=== PATIENT | male | born 1935 | race Caucasian/White ===

== ENCOUNTER → 2023-08-28 09:20 | Outpatient (REF) | payer MEDICARE, OTHER, SELFPAY ==
[2023-08-28 11:08] LABS: % Basophils 0.9 % (0-2); % Immature Granulocytes 0.1 % (0-0.5); % Lymphocytes 23.3 % (20.5-51.1); % Monocytes 6.8 % (1.7-9.3); % Neutrophils 65.9 % (42.2-75.2); Absolute Basophils 0.1 10^3/uL (0-0.2); Absolute Eosinophils 0.2 10^3/uL (0-0.7); Absolute Lymphocytes 1.6 10^3/uL (1.2-3.4); Absolute Monocytes 0.5 10^3/uL (0.1-0.6); Absolute Neutrophils 4.6 10^3/uL (1.4-6.5); Hematocrit 37.5 % (39.0-52.0); Hemoglobin 12.4 g/dL (13.0-18.0); Mean Corp Hgb Conc. 33.1 g/dL (33.0-37.0); Mean Corpuscular Hgb 32.7 pg (27.0-31.0); Mean Corpuscular Volume 98.9 fL (80.0-94.0); Mean Platelet Volume 9.4 fL (7.4-10.4); Nucleated Red Blood Cells % 0 % (-); Platelet Count 242 10^3/uL (130-400); Red Blood Cell Count 3.79 10^6/uL (4.70-6.10); Red Cell Dist. Width 12.6 % (11.5-14.5)
[2023-08-28 11:09] LABS: ALT (SGPT) 17 U/L (0-50); AST (SGOT) 27 U/L (17-59); Alkaline Phosphatase 62 U/L (38-126); Blood Urea Nitrogen 11 mg/dl (9-20); Calcium 9.7 mg/dl (8.4-10.2); Carbon Dioxide 28 mmol/L (22-30); Chloride 102 mmol/L (98-107); Glucose 98 mg/dl (70-99); HDL Cholesterol 73 mg/dl; LDL Cholesterol, Calculated 61 mg/dl; Potassium 4.6 mmol/L (3.5-5.1); Sodium 135 mmol/L (135-145); Total Bilirubin 0.7 mg/dl (0.2-1.3); Total Cholesterol 145 mg/dl (50-199); Total Protein 6.6 g/dl (6.3-8.2); Triglyceride 59 mg/dl (10-149); Very Low Density Lipoprotein 11 mg/dl (0-30); eGFR > 60.00
[2023-08-28 11:17] LABS: Vitamin D, 25-OH*** 48.2 ng/mL (30-80)
[2023-08-28 12:15] LABS: Glycohemoglobin (HgbA1c) 5.6 % (4.0-5.6)
== END ==
LOC: REG 09:20
PROVIDERS: ATTENDING PHYSICIAN Family Medicine
DX: I10 Essential (primary) hypertension (principal); E78.00 Pure hypercholesterolemia, unspecified; E55.9 Vitamin D deficiency, unspecified; R73.01 Impaired fasting glucose
CPT/HCPCS: 36415; 80053; 80061; 82306; 83036; 85025

== ENCOUNTER → 2023-10-20 06:24 | Day surgery (SDC) | payer MEDICARE, OTHER, SELFPAY | LOC: GI 06:24 | PROVIDERS: ATTENDING PHYSICIAN Specialist | DX: Z12.11 Encounter for screening for malignant neoplasm of colon (principal); K63.5 Polyp of colon; K57.30 Diverticulosis of large intestine without perforation or abscess without bleeding; Z86.010 Personal history of colon polyps; Z86.018 Personal history of other benign neoplasm; Z98.0 Intestinal bypass and anastomosis status | CPT/HCPCS: 45380; 88305 ==

== ENCOUNTER → 2023-11-02 14:31 | Outpatient (REF) | payer MEDICARE, OTHER, SELFPAY | LOC: REG 14:31 | PROVIDERS: ATTENDING PHYSICIAN Family Medicine | DX: R05.1 Acute cough (principal) | CPT/HCPCS: 71046 ==

== ENCOUNTER → 2023-11-24 07:13 | Outpatient (REF) | payer MEDICARE, OTHER, SELFPAY | LOC: RAD 07:13 | PROVIDERS: ATTENDING PHYSICIAN Family Medicine | DX: J30.2 Other seasonal allergic rhinitis (principal) | CPT/HCPCS: 71046 ==

== ENCOUNTER → 2023-12-10 09:12 | Outpatient (REF) | payer MEDICARE, OTHER, SELFPAY ==
[2023-12-10 09:55] VITALS: BP 163/65; BP_SYST 59
[2023-12-10 10:40] VITALS: BP 150/66
[2023-12-10 11:29] LABS: Body Fluid pH 7.46
[2023-12-10 11:45] LABS: Body Fluid Glucose 102 mg/dl; Body Fluid LDH 121 U/L; Body Fluid Protein 3.8 g/dl
[2023-12-10 13:04] LABS: Body Fluid Mononuclear 94.9 %; Body Fluid Polymorphonuclear 5.1 %; Body Fluid WBC 415 /CUMM
[2023-12-10 13:23] LABS: Body Fluid Second Tech AMA
== END ==
LOC: RADI 09:12
PROVIDERS: ATTENDING PHYSICIAN Internal Medicine Critical Care Medicine; FAMILY PHYSICIAN Family Medicine
DX: J90 Pleural effusion, not elsewhere classified (principal)
CPT/HCPCS: 88305; 32555; 71045; 82945; 83615; 83986; 84157; 87015; 87070; 87102; 87116; 87205; 87206; 88112; 89051

== ENCOUNTER → 2023-12-19 07:09 | Outpatient (REF) | payer MEDICARE, OTHER, SELFPAY | LOC: RAD 07:09 | PROVIDERS: ATTENDING PHYSICIAN Nurse Practitioner Family; FAMILY PHYSICIAN Family Medicine | DX: J90 Pleural effusion, not elsewhere classified (principal) | CPT/HCPCS: 71046 ==

== ENCOUNTER → 2023-12-25 11:01 | Outpatient (REF) | payer MEDICARE, OTHER, SELFPAY ==
[2023-12-25 11:20] VITALS: BP 142/92; BP_SYST 53
[2023-12-25 12:53] LABS: Body Fluid pH 7.47
[2023-12-25 13:05] LABS: Body Fluid Glucose 106 mg/dl; Body Fluid LDH 153 U/L; Body Fluid Protein 3.5 g/dl
[2023-12-25 13:06] LABS: Body Fluid Mononuclear 95.5 %; Body Fluid Polymorphonuclear 4.5 %; Body Fluid WBC 598 /CUMM
[2023-12-25 13:14] VITALS: BP 142/92
--- NOTE | 2023-12-25 13:16 | PTCARENOTE ---
[address] via stretcher for CT chest as per post thoracentesis order. Returned at 1245 and images reviewed by Dr Echevarria. Elieser for discharge.
[2023-12-25 13:19] LABS: Body Fluid Second Tech RLT
== END ==
LOC: RADI 11:01
PROVIDERS: ATTENDING PHYSICIAN Nurse Practitioner Family; FAMILY PHYSICIAN Family Medicine
DX: J90 Pleural effusion, not elsewhere classified (principal)
CPT/HCPCS: 88305; 32555; 71250; 82945; 83615; 83986; 84157; 87015; 87070; 87102; 87116; 87205; 87206; 88112; 88341; 88342; 89051

== ENCOUNTER → 2024-01-15 07:22 | Outpatient (REF) | payer MEDICARE, OTHER, SELFPAY ==
[2024-01-15 08:48] LABS: Body Fluid pH 7.45
[2024-01-15 08:55] VITALS: BP 137/65; BP_SYST 62
[2024-01-15 09:02] LABS: Body Fluid Glucose 102 mg/dl; Body Fluid LDH 134 U/L; Body Fluid Protein 3.3 g/dl
[2024-01-15 09:31] LABS: Body Fluid Mononuclear 96.2 %; Body Fluid Polymorphonuclear 3.8 %; Body Fluid WBC 371 /CUMM
[2024-01-15 09:52] LABS: Body Fluid Second Tech CMB
== END ==
LOC: RADI 07:22
PROVIDERS: ATTENDING PHYSICIAN Nurse Practitioner Family; FAMILY PHYSICIAN Family Medicine
DX: J90 Pleural effusion, not elsewhere classified (principal)
CPT/HCPCS: 88305; 32555; 71045; 82945; 83615; 83986; 84157; 87015; 87070; 87102; 87116; 87205; 88112; 89051

== ENCOUNTER → 2024-02-11 09:28 | Outpatient (REF) | payer MEDICARE, OTHER, SELFPAY ==
[2024-02-11 09:48] VITALS: BP 147/77; BP_SYST 78
[2024-02-11 10:15] VITALS: BP 127/77; BP_SYST 59
== END ==
LOC: RADI 09:28
PROVIDERS: ATTENDING PHYSICIAN Internal Medicine Critical Care Medicine; FAMILY PHYSICIAN Family Medicine; OTHER PHYSICIAN Nurse Practitioner Family
DX: J90 Pleural effusion, not elsewhere classified (principal)
CPT/HCPCS: 88305; 32555; 71045; 88112

== ENCOUNTER → 2024-02-15 15:03 | Outpatient (REF) | payer MEDICARE, OTHER, SELFPAY | LOC: RCS 15:03 | PROVIDERS: ATTENDING PHYSICIAN Internal Medicine Critical Care Medicine; FAMILY PHYSICIAN Family Medicine | DX: I48.0 Paroxysmal atrial fibrillation (principal) | CPT/HCPCS: 93306 ==

== ENCOUNTER → 2024-03-29 09:43 | Outpatient (REF) | payer MEDICARE, OTHER, SELFPAY ==
[2024-03-29 10:08] VITALS: BP 139/63; BP_SYST 61
[2024-03-29 11:03] VITALS: BP 127/54
[2024-03-29 11:30] LABS: Body Fluid pH 7.52
[2024-03-29 11:37] LABS: Body Fluid Glucose 99 mg/dl; Body Fluid LDH 146 U/L; Body Fluid Protein 3.3 g/dl
[2024-03-29 11:59] LABS: Body Fluid Mononuclear 97.5 %; Body Fluid Polymorphonuclear 2.5 %; Body Fluid WBC 904 /CUMM
[2024-03-29 12:08] LABS: Body Fluid Second Tech ASW
== END ==
LOC: RADI 09:43
PROVIDERS: ATTENDING PHYSICIAN Internal Medicine Critical Care Medicine; FAMILY PHYSICIAN Family Medicine
DX: J90 Pleural effusion, not elsewhere classified (principal)
CPT/HCPCS: 88305; 32555; 71045; 82945; 83615; 83986; 84157; 87015; 87070; 87102; 87116; 87205; 87206; 88112; 89051

== ENCOUNTER → 2024-03-31 15:11 | Outpatient (REF) | payer MEDICARE, OTHER, SELFPAY ==
[2024-03-31 16:46] LABS: Blood Urea Nitrogen 20 mg/dl (9-20); Carbon Dioxide 29 mmol/L (22-30); Chloride 99 mmol/L (98-107); Glucose 107 mg/dl (70-99); Sodium 137 mmol/L (135-145); eGFR > 60.00
[2024-03-31 16:55] LABS: NT-proBNP 1660 pg/ml
== END ==
LOC: REG 15:11
PROVIDERS: ATTENDING PHYSICIAN Internal Medicine Cardiovascular Disease; FAMILY PHYSICIAN Family Medicine
DX: I48.0 Paroxysmal atrial fibrillation (principal)
CPT/HCPCS: 36415; 80048; 83880

== ENCOUNTER → 2024-04-07 12:30 | Outpatient (REF) | payer MEDICARE, OTHER, SELFPAY ==
[2024-04-07 13:38] LABS: Blood Urea Nitrogen 19 mg/dl (9-20); Carbon Dioxide 30 mmol/L (22-30); Chloride 98 mmol/L (98-107); Glucose 122 mg/dl (70-99); Potassium 4.6 mmol/L (3.5-5.1); Sodium 133 mmol/L (135-145); eGFR > 60.00
== END ==
LOC: RAD 12:30
PROVIDERS: ATTENDING PHYSICIAN Internal Medicine Cardiovascular Disease; FAMILY PHYSICIAN Family Medicine
DX: I48.0 Paroxysmal atrial fibrillation (principal); I10 Essential (primary) hypertension
CPT/HCPCS: 36415; 71046; 80048

== ENCOUNTER 2024-04-14 09:28 | Day surgery (SDC) | payer MEDICARE, OTHER, SELFPAY | END 2024-04-14 12:41 | disposition home or self-care (01) | LOC: CATH 09:28 | PROVIDERS: ATTENDING PHYSICIAN Internal Medicine Cardiovascular Disease; FAMILY PHYSICIAN Family Medicine; OTHER PHYSICIAN Internal Medicine Cardiovascular Disease | DX: I35.2 Nonrheumatic aortic (valve) stenosis with insufficiency (principal); Z95.3 Presence of xenogenic heart valve; I08.3 Combined rheumatic disorders of mitral, aortic and tricuspid valves; I08.8 Other rheumatic multiple valve diseases; Q21.12 Patent foramen ovale | CPT/HCPCS: 93312; 93320; 93325 ==

== ENCOUNTER → 2024-04-22 11:01 | Outpatient (REF) | payer MEDICARE, OTHER, SELFPAY ==
[2024-04-22 12:18] LABS: Blood Urea Nitrogen 21 mg/dl (9-20); Calcium 9.3 mg/dl (8.4-10.2); Carbon Dioxide 30 mmol/L (22-30); Chloride 96 mmol/L (98-107); Glucose 104 mg/dl (70-99); Potassium 5.1 mmol/L (3.5-5.1); Sodium 134 mmol/L (135-145); eGFR > 60.00
[2024-04-22 12:20] LABS: NT-proBNP 1810 pg/ml
[2024-04-22 12:32] LABS: PSA, Total - Diagnostic 0.64 ng/ml (0.0-4.0)
== END ==
LOC: REG 11:01
PROVIDERS: ATTENDING PHYSICIAN Specialist; FAMILY PHYSICIAN Internal Medicine Cardiovascular Disease
DX: I10 Essential (primary) hypertension (principal); N40.0 Benign prostatic hyperplasia without lower urinary tract symptoms
CPT/HCPCS: 36415; 80048; 83880; 84153

== ENCOUNTER → 2024-04-25 09:17 | Outpatient (REF) | payer MEDICARE, OTHER, SELFPAY | LOC: RAD 09:17 | PROVIDERS: ATTENDING PHYSICIAN Nurse Practitioner Acute Care; FAMILY PHYSICIAN Family Medicine | DX: I05.9 Rheumatic mitral valve disease, unspecified (principal) | CPT/HCPCS: 74174; 75572; Q9967 ==

== ENCOUNTER → 2024-04-28 08:55 | Outpatient (REF) | payer MEDICARE, OTHER, SELFPAY ==
[2024-04-28 09:09] VITALS: BP 138/75; BP_SYST 66
[2024-04-28 09:35] VITALS: BP 146/69
== END ==
LOC: RADI 08:55
PROVIDERS: ATTENDING PHYSICIAN Internal Medicine Cardiovascular Disease; FAMILY PHYSICIAN Family Medicine
DX: J90 Pleural effusion, not elsewhere classified (principal)
CPT/HCPCS: 32555; 71045

== ENCOUNTER → 2024-04-28 10:33 | Outpatient (REF) | payer MEDICARE, OTHER, SELFPAY ==
[2024-04-28 12:25] LABS: NT-proBNP 1620 pg/ml
[2024-04-28 12:44] LABS: Blood Urea Nitrogen 18 mg/dl (9-20); Calcium 9.4 mg/dl (8.4-10.2); Carbon Dioxide 33 mmol/L (22-30); Chloride 95 mmol/L (98-107); Glucose 93 mg/dl (70-99); Potassium 4.7 mmol/L (3.5-5.1); Sodium 135 mmol/L (135-145); eGFR > 60.00
== END ==
LOC: REG 10:33
PROVIDERS: ATTENDING PHYSICIAN Internal Medicine Cardiovascular Disease; FAMILY PHYSICIAN Family Medicine
DX: I48.0 Paroxysmal atrial fibrillation (principal)
CPT/HCPCS: 36415; 80048; 83880

== ENCOUNTER → 2024-05-31 14:09 | Outpatient (REF) | payer MEDICARE, OTHER, SELFPAY ==
[2024-05-31 16:51] LABS: Blood Urea Nitrogen 26 mg/dl (9-20); Calcium 9.2 mg/dl (8.4-10.2); Carbon Dioxide 28 mmol/L (22-30); Chloride 96 mmol/L (98-107); Glucose 102 mg/dl (70-99); Potassium 4.9 mmol/L (3.5-5.1); Sodium 132 mmol/L (135-145); eGFR > 60.00
[2024-05-31 18:31] LABS: % Basophils 0.8 % (0-2); % Eosinophils 1.9 % (0-6); % Immature Granulocytes 0.4 % (0-0.5); % Monocytes 6.4 % (1.7-9.3); % Neutrophils 74.5 % (42.2-75.2); Absolute Basophils 0.1 10^3/uL (0-0.2); Absolute Eosinophils 0.2 10^3/uL (0-0.7); Absolute Lymphocytes 1.3 10^3/uL (1.2-3.4); Absolute Monocytes 0.5 10^3/uL (0.1-0.6); Absolute Neutrophils 5.9 10^3/uL (1.4-6.5); Hematocrit 31.4 % (39.0-52.0); Hemoglobin 10.2 g/dL (13.0-18.0); Mean Corp Hgb Conc. 32.5 g/dL (33.0-37.0); Mean Corpuscular Hgb 32.1 pg (27.0-31.0); Mean Corpuscular Volume 98.7 fL (80.0-94.0); Mean Platelet Volume 9.7 fL (7.4-10.4); Nucleated Red Blood Cells % 0 % (-); Platelet Count 222 10^3/uL (130-400); Red Blood Cell Count 3.18 10^6/uL (4.70-6.10); Red Cell Dist. Width 13.3 % (11.5-14.5); White Blood Cell Count 7.9 10^3/uL (4.8-10.8)
== END ==
LOC: REG 14:09
PROVIDERS: ATTENDING PHYSICIAN Nurse Practitioner Acute Care
DX: T82.857A Stenosis of other cardiac prosthetic devices, implants and grafts, initial encounter (principal)
CPT/HCPCS: 36415; 80048; 85025

== ENCOUNTER → 2024-07-19 14:47 | Outpatient (REF) | payer MEDICARE, OTHER, SELFPAY ==
[2024-07-19 16:20] LABS: Blood Urea Nitrogen 19 mg/dl (9-20); Calcium 9.3 mg/dl (8.4-10.2); Carbon Dioxide 31 mmol/L (22-30); Chloride 99 mmol/L (98-107); Glucose 94 mg/dl (70-99); Potassium 4.6 mmol/L (3.5-5.1); Sodium 136 mmol/L (135-145); eGFR > 60.00
[2024-07-19 16:31] LABS: NT-proBNP 1980 pg/ml
[2024-07-19 16:51] LABS: PSA, Total - Diagnostic 0.52 ng/ml (0.0-4.0)
== END ==
LOC: REG 14:47
PROVIDERS: ATTENDING PHYSICIAN Specialist; FAMILY PHYSICIAN Internal Medicine Cardiovascular Disease
DX: N40.0 Benign prostatic hyperplasia without lower urinary tract symptoms (principal); I10 Essential (primary) hypertension
CPT/HCPCS: 36415; 80048; 83880; 84153

== ENCOUNTER → 2024-09-07 14:47 | Outpatient (REF) | payer MEDICARE, OTHER, SELFPAY | LOC: RAD 14:47 | PROVIDERS: ATTENDING PHYSICIAN Internal Medicine Critical Care Medicine; FAMILY PHYSICIAN Family Medicine | DX: J90 Pleural effusion, not elsewhere classified (principal) | CPT/HCPCS: 71046 ==

== ENCOUNTER → 2024-10-19 11:12 | Outpatient (REF) | payer MEDICARE, OTHER, SELFPAY ==
[2024-10-19 11:38] LABS: % Basophils 0.6 % (0-2); % Eosinophils 1.1 % (0-6); % Immature Granulocytes 0.3 % (0-0.5); % Lymphocytes 26.2 % (20.5-51.1); % Monocytes 8.2 % (1.7-9.3); % Neutrophils 63.6 % (42.2-75.2); Absolute Eosinophils 0.1 10^3/uL (0-0.7); Absolute Lymphocytes 1.6 10^3/uL (1.2-3.4); Absolute Monocytes 0.5 10^3/uL (0.1-0.6); Absolute Neutrophils 3.9 10^3/uL (1.4-6.5); Hemoglobin 11.7 g/dL (13.0-18.0); Mean Corp Hgb Conc. 34.4 g/dL (33.0-37.0); Mean Corpuscular Hgb 31.8 pg (27.0-31.0); Mean Corpuscular Volume 92.4 fL (80.0-94.0); Mean Platelet Volume 8.6 fL (7.4-10.4); Nucleated Red Blood Cells % 0 % (-); Platelet Count 187 10^3/uL (130-400); Red Blood Cell Count 3.68 10^6/uL (4.70-6.10); Red Cell Dist. Width 13.1 % (11.5-14.5); White Blood Cell Count 6.2 10^3/uL (4.8-10.8)
[2024-10-19 13:14] LABS: ALT (SGPT) 17 U/L (0-50); AST (SGOT) 23 U/L (17-59); Alkaline Phosphatase 59 U/L (38-126); Blood Urea Nitrogen 17 mg/dl (9-20); Calcium 9.3 mg/dl (8.4-10.2); Carbon Dioxide 26 mmol/L (22-30); Chloride 98 mmol/L (98-107); Glucose 83 mg/dl (70-99); HDL Cholesterol 51 mg/dl; LDL Cholesterol, Calculated 65 mg/dl; Potassium 4.8 mmol/L (3.5-5.1); Sodium 130 mmol/L (135-145); Total Bilirubin 0.7 mg/dl (0.2-1.3); Total Cholesterol 127 mg/dl (50-199); Total Protein 6.7 g/dl (6.3-8.2); Triglyceride 56 mg/dl (10-149); Very Low Density Lipoprotein 11 mg/dl (0-30); eGFR > 60.00
[2024-10-19 13:32] LABS: Vitamin D, 25-OH*** 50.4 ng/mL (30-80)
[2024-10-19 13:46] LABS: TSH 1.73 uIU/ml (0.47-4.68)
[2024-10-19 14:05] LABS: Vitamin B12 639 pg/ml (239-931)
== END ==
LOC: REG 11:12
PROVIDERS: ATTENDING PHYSICIAN Family Medicine
DX: I10 Essential (primary) hypertension (principal); E78.00 Pure hypercholesterolemia, unspecified; E53.8 Deficiency of other specified B group vitamins; E55.9 Vitamin D deficiency, unspecified
CPT/HCPCS: 36415; 80053; 80061; 82306; 82607; 84443; 85025

== ENCOUNTER → 2024-11-09 11:17 | Outpatient (REF) | payer MEDICARE, OTHER, SELFPAY ==
[2024-11-09 13:15] LABS: Blood Urea Nitrogen 17 mg/dl (9-20); Calcium 9.6 mg/dl (8.4-10.2); Carbon Dioxide 26 mmol/L (22-30); Chloride 103 mmol/L (98-107); Glucose 98 mg/dl (70-99); Potassium 4.5 mmol/L (3.5-5.1); Sodium 133 mmol/L (135-145); eGFR > 60.00
== END ==
LOC: REG 11:17
PROVIDERS: ATTENDING PHYSICIAN Internal Medicine Cardiovascular Disease; FAMILY PHYSICIAN Family Medicine
DX: E78.00 Pure hypercholesterolemia, unspecified (principal)
CPT/HCPCS: 36415; 80048; 83880

== ENCOUNTER → 2024-11-28 12:34 | Outpatient (REF) | payer MEDICARE, OTHER, SELFPAY | LOC: HWRAD 12:34 | PROVIDERS: ATTENDING PHYSICIAN Family Medicine | DX: R19.09 Other intra-abdominal and pelvic swelling, mass and lump (principal); R22.41 Localized swelling, mass and lump, right lower limb | CPT/HCPCS: 76882 ==

== ENCOUNTER → 2024-11-30 12:08 | Outpatient (REF) | payer MEDICARE, OTHER, SELFPAY | LOC: RCS 12:08 | PROVIDERS: ATTENDING PHYSICIAN Internal Medicine Cardiovascular Disease; FAMILY PHYSICIAN Family Medicine | DX: Z95.3 Presence of xenogenic heart valve (principal) | CPT/HCPCS: 93306 ==

== ENCOUNTER 2025-02-24 11:40 | Outpatient (RCR) | payer MEDICARE, OTHER, SELFPAY | END 2025-02-24 23:59 | disposition home or self-care (01) | LOC: CRHB 11:40 | PROVIDERS: ATTENDING PHYSICIAN Internal Medicine Cardiovascular Disease | DX: Z95.4 Presence of other heart-valve replacement | CPT/HCPCS: G0422; G0423 ==

== ENCOUNTER 2025-03-22 12:55 | Outpatient (RCR) | payer MEDICARE, OTHER, SELFPAY | END 2025-03-22 23:59 | disposition home or self-care (01) | LOC: CRHB 12:55 | PROVIDERS: ATTENDING PHYSICIAN Internal Medicine Cardiovascular Disease; FAMILY PHYSICIAN Family Medicine | DX: Z95.4 Presence of other heart-valve replacement (principal) | CPT/HCPCS: G0422; G0423 ==

== ENCOUNTER 2025-03-27 10:13 | Outpatient (RCR) | payer MEDICARE, OTHER, SELFPAY | END 2025-03-27 23:59 | disposition home or self-care (01) | LOC: CRHB 10:13 | PROVIDERS: ATTENDING PHYSICIAN Internal Medicine Cardiovascular Disease; FAMILY PHYSICIAN Family Medicine | DX: Z95.4 Presence of other heart-valve replacement (principal) | CPT/HCPCS: G0422; G0423 ==

== ENCOUNTER 2025-03-27 18:30 | Emergency (ER) | payer MEDICARE, OTHER, SELFPAY ==
[2025-03-27 18:38] VITALS: BP 131/52
--- NOTE | 2025-03-27 20:07 | ED.GENMED ---
History of Present Illness
General
Chief Complaint: Skin Surface Trauma
Source: patient
Exam Limitations: none
Time Seen by Provider: 03/27/25 19:54
History of Present Illness
History of Present Illness:
Note:
CHIEF COMPLAINT(S)
Toe injury with toenail avulsion.
HISTORY OF PRESENT ILLNESS
The patient is an 89-year-old male who presents with an injury to his toe. The injury occurred while he was working with a tractor, during which a grader blade slipped and impacted his foot. He reports that he ran into the tub immediately after the
incident, washed it, and applied hydrogen peroxide followed by an antibiotic ointment. He states, 'I put some kind of antibiotic on it' and bandaged the area himself. The patient expressed that the injury hurts a little bit, and he understands that
it may take a while to heal with potential loss of the toenail. He is concerned about the possibility of infection and has been advised to follow up with a director of compensation. He recalls a similar toenail issue and treatment history with his handicapped
child by a director of compensation.
ALLERGIES
He notes a previous allergic reaction to a drug given years ago, stating, 'We dont give that. Thats a bad drug.'
IMMUNIZATION HISTORY
The patient recalls his last tetanus booster was six to seven years ago. Considering the nature of the injury and vaccination timeline, a tetanus booster is recommended.
PHYSICAL EXAM
General: Febrile, no acute distress.
Skin: Foot, toenail, and tip amputation observed with controlled bleeding. No signs of infection.
Cardiovascular: Normal peripheral pulses in all extremities.
Respiratory: Non-labored respirations.
PLAN
- Dressing application to the injured toe.
- Obtain an X-ray to assess for further injury.
- Administer tetanus booster for prophylaxis given the mechanism of injury and immunization history.
- Prescribe prophylactic antibiotics to prevent potential infection.
- Follow-up appointment with a director of compensation for further evaluation and management of the toenail issue.
DIFFERENTIAL DIAGNOSIS
The Differential Diagnosis includes, in no particular order and is not limited to:
1. Traumatic nail avulsion
2. Nail bed laceration
3. Subungual hematoma
4. Open fracture
5. Soft tissue infection
6. Osteomyelitis
7. Foreign body
8. Contusion
9. Peripheral vascular insufficiency
10. Diabetes-related foot ulceration
CARE-UPDATE
03/27/25 - 20:48
No Content
Disposition:
SUMMARY OF ENCOUNTER
The patient, an 89-year-old male, presented with an injury to his toe resulting from a tractor incident. Upon arrival, the wound was irrigated, and there was no sign of infection. Bleeding was controlled, and a post-operative dressing was applied.
The patient was concerned about tetanus and infection, and it was noted that his tetanus immunization was updated given the nature of the injury. Prophylactic antibiotics with Cephalexin (Keflex) were administered to prevent infection.
DISPOSITION
Discharge home.
PLAN
- Dressing application to the injured toe.
- Administered tetanus booster for prophylaxis.
- Prescribed Cephalexin prophylactically.
- Follow-up with a director of compensation, Dr. Yonatan Tavares, for further evaluation and management.
PATIENT EDUCATION AND COUNSELING
The patient was educated about signs of infection to watch for, the importance of keeping the bandaged area clean and dry, and was instructed on the proper care of the wound. He was advised on the importance of completing the full course of
antibiotics and updating his tetanus vaccine status.
FOLLOW-UP INSTRUCTIONS
The patient was instructed to follow up with the director of compensation, Dr. Yonatan Tavares, for further care and monitoring of the injury.
MEDICATION RECONCILIATION
- Cephalexin (Keflex) prescribed for prophylaxis against infection.
MEDICAL DECISION MAKING
- Complexity of Data Reviewed: DDX includes traumatic nail avulsion, nail bed laceration, subungual hematoma, open fracture, soft tissue infection, osteomyelitis, foreign body, contusion, peripheral vascular insufficiency, diabetes-related foot
ulceration.
- Data:
- Category 1: Tests and documents reviewed: Outpatient records and prior immunization history.
- Category 3: Management discussed with Dr. Yonatan Tavares regarding follow-up care.
DIAGNOSIS
Traumatic nail avulsion (ICD-10 S91.30XA), open wound of the toe without complications (ICD-10 S91.209A).
Past History
Past History
ED Past Medical History: Asthma, Cancer, HTN, Hypercholesterolemia, NIDDM, Valvular disease and Other (Bowel obstruction, Glaucoma)
ED Past Surgical History: Appendectomy, Bowel resection, Cardiac (Mitral and aortic valve replacement) and Other (Right hernia)
Social History
Tobacco: Former smoker
Alcohol: Occasional
Personal:
Living: alone
Employment: Employed
Family History
Family History: Other (Noncontributory)
Phy Exam
Physical Exam
Physical Exam:
.
Course
Orders/Labs/Results
Orders:
Orders
03/27/25 20:08
Cephalexin Monohydrate [Keflex] 500 mg PO NOW STA
Tetanus/Diphth/Acelpertussis [Adacel] 0.5 ml IM .ONCE ONE
CR Foot - Left Min 3 Views Urgent
Reason For Exam: left 3rd toe injury today
Vital Signs
Initial and Last Documented VS:
Initial Vital Signs
Temp Pulse Resp BP Pulse Ox
98.4 F 65 18 131/52 98
03/27/25 18:38 03/27/25 18:38 03/27/25 18:38 03/27/25 18:38 03/27/25 18:38
Last Documented Vital Signs
Temp Pulse Resp BP Pulse Ox
98.4 F 65 18 131/52 98
03/27/25 18:38 03/27/25 18:38 03/27/25 18:38 03/27/25 18:38 03/27/25 20:08
Procedures
Wound Exploration
Left Third Toe:
Preparation: cleaned with soap & water
Procedure- wound: opened to visualize
Findings- Extent of wound is: clearly visualized
*Pulse Oximetry
SaO2: 98
Oxygen Mode of Delivery: Room air
Patient hypoxic: no
*Critical Care Note
Total Time (30-74mins, 75-104mins- exclusive of procedures): Not Applicable
ED Attending Note
-
Portions of this chart may have been created with voice recognition software.� Occasional wrong word or��sound alike� substitutions may have occurred due to the inherent limitations of voice recognition software.
Discharge Plan
Departure
Patient Disposition: Home (Routine Discharge)
Date of Disposition: 03/27/25
Time of Disposition: 21:30
Patient with high blood pressure during this ER visit?: Yes
Condition: Good
Discharge Problem:
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
Instructions: Wound Care (DC), BLOOD PRESSURE
Prescriptions:
New
cephalexin 500 mg capsule
500 mg PO TID 7 Days Qty: 21 0RF
No Action
aspirin 81 MG tablet,delayed release (DR/EC)
81 mg PO QPM
losartan 50 MG tablet
50 mg PO DAILY@1600
dorzolamide-timolol [Cosopt] 1 DROP drops
1 drp BOTH EYES BID
metoprolol tartrate 25 MG tablet
25 mg PO BID
Lumigan 1 DROP drops
1 drp BOTH EYES HS
finasteride 5 MG tablet
5 mg PO HS
brimonidine [Alphagan P] 10 ML drops
1 drp BOTH EYES TID
Patient Comments:
05/13/22- PATIENT JUST NEEDS HIS PM DOSE HE ALREADY TOOK HIS AFTERNOON DOSE IN ROOM [facility]
losartan 25 mg Tablet
25 mg PO DAILY
cyanocobalamin (vitamin B-12) 1,000 mcg Tablet
1,000 mcg PO DAILY
pravastatin 80 mg tablet
80 mg PO QPM
cholecalciferol (vitamin D3) [Vitamin D3] 50 mcg (2,000 unit) Capsule
50 mcg PO DAILY
amlodipine 5 mg tablet
5 mg PO HS
guaifenesin [Mucinex] 600 mg Tablet Extended Release 12hr
600 mg PO Q12H PRN (Reason: allergies)
pilocarpine HCl 1 % Drops
2 drp OPHTHALMIC (EYE) QID
Referrals:
Dennis Cardenas DO [Family Provider, Family Practice]
Interventions
Interventions:
*Risk Screen - Suicide Last Done: 03/27/25 18:38
*General Assessment Last Done: 03/27/25 18:38
*Neglect/Abuse Screening Last Done: 03/27/25 18:38
*Nursing Disposition Last Done: 03/27/25 22:18
ED-Skin Assessment Last Done: 03/27/25 20:53
Discharge Date and Time
Discharge Date/Time: 03/27/25 22:19
Print Language: FRENCH
[2025-03-27] MEDS: KEFLEX 500 MG PO (20:25)
[2025-03-27] MEDS: ADACEL 0.5 ML IM (20:25)
== END 2025-03-27 22:19 | disposition home or self-care (01) ==
LOC: EMR 18:30
PROVIDERS: EMERGENCY PHYSICIAN Emergency Medicine; FAMILY PHYSICIAN Family Medicine
DX: S98.142A Partial traumatic amputation of one left lesser toe, initial encounter (principal); W30.89XA Contact with other specified agricultural machinery, initial encounter; Y93.89 Activity, other specified; E11.9 Type 2 diabetes mellitus without complications; E78.00 Pure hypercholesterolemia, unspecified; I10 Essential (primary) hypertension; J45.909 Unspecified asthma, uncomplicated; Z87.891 Personal history of nicotine dependence; Z23 Encounter for immunization
CPT/HCPCS: 90471; 99283; 73630; 90715

== ENCOUNTER 2025-03-30 06:17 | Day surgery (SDC) | payer MEDICARE, OTHER, SELFPAY ==
[2025-03-30 15:14] VITALS: BP 143/62
[2025-03-30 15:20] VITALS: BMI 21.2
[2025-03-30] MEDS: TYLENOL 1000 MG PO (15:29)
[2025-03-30] MEDS: NORMOSOL-R/PLASMALYTE-A 1000 IV (15:29)
[2025-03-30] MEDS: CELEBREX 200 MG PO (15:30)
[2025-03-30 17:28] VITALS: BP 133/70
== END 2025-03-30 18:46 | disposition home or self-care (01) ==
LOC: SDS 06:17
PROVIDERS: ATTENDING PHYSICIAN Student in an Organized Health Care Education/Training Program
DX: S92.532B Displaced fracture of distal phalanx of left lesser toe(s), initial encounter for open fracture (principal); W23.0XXA Caught, crushed, jammed, or pinched between moving objects, initial encounter
CPT/HCPCS: 28825

== ENCOUNTER → 2025-04-06 14:00 | Outpatient (REF) | payer MEDICARE, OTHER, SELFPAY ==
[2025-04-06 15:37] LABS: ALT (SGPT) 19 U/L (0-50); AST (SGOT) 28 U/L (17-59); Albumin 4.3 g/dl (3.5-5.0); Alkaline Phosphatase 58 U/L (38-126); Blood Urea Nitrogen 22 mg/dl (9-20); Calcium 9.6 mg/dl (8.4-10.2); Carbon Dioxide 30 mmol/L (22-30); Chloride 92 mmol/L (98-107); Glucose 86 mg/dl (70-99); Iron 94 ug/dl (49-181); Potassium 4.8 mmol/L (3.5-5.1); Sodium 127 mmol/L (135-145); Total Protein 7.5 g/dl (6.3-8.2); eGFR > 60.00
[2025-04-06 15:44] LABS: Hematocrit 36.1 % (39.0-52.0); Hemoglobin 12.2 g/dL (13.0-18.0); Mean Corp Hgb Conc. 33.8 g/dL (33.0-37.0); Mean Corpuscular Volume 102.0 fL (80.0-94.0); Nucleated Red Blood Cells % 0 % (-); Platelet Count 235 10^3/uL (130-400); Red Cell Dist. Width 12.4 % (11.5-14.5)
[2025-04-06 15:46] LABS: Total Iron Binding Capacity 357 ug/dl (261-462)
[2025-04-06 16:13] LABS: Ferritin 103.0 ng/ml (17.9-464.0)
[2025-04-06 16:44] LABS: Folate 11.2 ng/ml (2.76-20); Vitamin B12 660 pg/ml (239-931)
== END ==
LOC: REG 14:00
PROVIDERS: ATTENDING PHYSICIAN Internal Medicine Cardiovascular Disease; FAMILY PHYSICIAN Family Medicine
DX: D64.9 Anemia, unspecified (principal); E78.00 Pure hypercholesterolemia, unspecified; I50.30 Unspecified diastolic (congestive) heart failure; I10 Essential (primary) hypertension; I48.0 Paroxysmal atrial fibrillation; Z95.3 Presence of xenogenic heart valve; F10.20 Alcohol dependence, uncomplicated
CPT/HCPCS: 36415; 80053; 82607; 82728; 82746; 83540; 83550; 83880; 85025

== ENCOUNTER → 2025-04-14 11:19 | Outpatient (REF) | payer MEDICARE, OTHER, SELFPAY ==
[2025-04-14 16:34] LABS: Blood Urea Nitrogen 19 mg/dl (9-20); Calcium 9.3 mg/dl (8.4-10.2); Carbon Dioxide 30 mmol/L (22-30); Chloride 99 mmol/L (98-107); Glucose 94 mg/dl (70-99); HDL Cholesterol 80 mg/dl; LDL Cholesterol, Calculated 66 mg/dl; Potassium 4.8 mmol/L (3.5-5.1); Sodium 132 mmol/L (135-145); Very Low Density Lipoprotein 12 mg/dl (0-30); eGFR > 60.00
== END ==
LOC: REG 11:19
PROVIDERS: ATTENDING PHYSICIAN Internal Medicine Cardiovascular Disease; FAMILY PHYSICIAN Family Medicine
DX: E87.1 Hypo-osmolality and hyponatremia (principal); I10 Essential (primary) hypertension; E78.00 Pure hypercholesterolemia, unspecified; F10.20 Alcohol dependence, uncomplicated; I50.30 Unspecified diastolic (congestive) heart failure
CPT/HCPCS: 36415; 80048; 80061